=== PATIENT | male | born 1955 | race Caucasian/White ===

== ENCOUNTER → 2017-05-22 | Outpatient (CLI) | payer OTHER ==
[~2017-05-22] MED LIST: GLUC1TAB27 PO; MATURE MVT PO
== END | disposition home or self-care (01) ==
LOC: STAR 11:18
PROVIDERS: ATTEND Podiatrist Foot & Ankle Surgery
DX: Z01.818 Encounter for other preprocedural examination (principal)
CPT/HCPCS: 93005

== ENCOUNTER 2017-05-27 17:07 | Day surgery (SDC) | payer OTHER ==
[~2017-05-27] VITALS: Ht 185.4 cm; Wt 120.0 kg
[2017-05-27] MEDS ORDERED: LACTATED RINGERS 1,000 ML IV SCH (17:44)
[2017-05-27] MEDS ORDERED: MIDAZOLAM 1 MG/ML, 2ML ONE (18:25)
[2017-05-27] MEDS ORDERED: LIDOCAINE/PF 1%, 30ML ONE (18:29)
[2017-05-27] MEDS ORDERED: BUPIVACAINE/PF 0.5% ONE (18:29)
[2017-05-27] MEDS ORDERED: EPINEPHRINE 1 MG/ML, 1ML ONE (18:29)
[2017-05-27] MEDS ORDERED: FENTANYL PF 250 MCG/5ML ONE (18:36)
[2017-05-27] MEDS ORDERED: ACETAMINOPHEN 325 MG TABLET PO PRN (19:00)
[2017-05-27] MEDS ORDERED: hydrALAzine 20 MG/ML, 1ML IV PRN (19:00)
[2017-05-27] MEDS ORDERED: HYDROmorphone 1 MG/ML, 1ML IV PRN (19:00)
[2017-05-27] MEDS ORDERED: LABETALOL 5MG/ML, 20ML IV PRN (19:00)
[2017-05-27] MEDS ORDERED: ONDANSETRON 2MG/ML, 2ML IVPush PRN (19:00)
[2017-05-27] MEDS ORDERED: OXYcodone 5 MG/5 ML ORAL.SOL UDC PO PRN (19:00)
[2017-05-27] MEDS ORDERED: FENTANYL PF 100 MCG/2ML IV PRN (19:00)
[2017-05-27] MEDS ORDERED: PROPOFOL 10 MG/ML, 20ML ONE ×2 (19:27)
[2017-05-27] MEDS ORDERED: CEFAZOLIN 1,000 MG ONE ×2 (19:27)
[2017-05-27] MEDS ORDERED: ACETAMINOPHEN 650 MG/20.3 ML UDC ONE (20:02)
[2017-05-27 20:30] VITALS: BP 137/81
== END 2017-05-27 22:03 | disposition home or self-care (01) ==
LOC: OUT 17:07 → 4NOR 20:50 → OUT 22:03
PROVIDERS: ATTEND Podiatrist Foot & Ankle Surgery
DX: M77.51 Other enthesopathy of right foot and ankle (principal); Z98.890 Other specified postprocedural states; Z88.1 Allergy status to other antibiotic agents; E66.9 Obesity, unspecified; Z68.35 Body mass index [BMI] 35.0-35.9, adult
CPT/HCPCS: 28122; J0171; J0690; J2250; J2704; J3010; J3490

== ENCOUNTER 2018-07-27 18:45 | Inpatient (IN) | payer OTHER, MEDICARE ==
[~2018-07-27] VITALS: Ht 185.4 cm; Wt 106.4 kg
--- NOTE | 2018-07-27 19:03 | NUR ---
PT WC'D TO ROOM 23 W/ C/O EPIGASTRIC ABD PAIN STARTED THURSDAY AND HAS GOTTEN INCREASING WORSE. PT STATES HE ALSO STARTED HAVING C/O CP STARTED 15 MIN AGO. PT HAS HX ABLATION 2007. PT RESTING ON GURNEY. NADN. VSS. MONITORS APPLIED. WARM BLANKET PROVIDED. FAMILY AT BEDISDE. EDPA AT BEDSIDE. REPORT GIVEN TO ALEXA HERNÁNDEZ RN.
[2018-07-27] MEDS ORDERED: HYDROmorphone 2 MG/ML, 1ML IVPush PRN (19:30)
[2018-07-27] MEDS ORDERED: ONDANSETRON 2MG/ML, 2ML IVPush ONE (19:30)
[2018-07-27 19:32] LABS: BASOPHILS # (AUTO) 0.02 x10^3/uL (0-0.1); BASOPHILS % (AUTO) 0 % (0-1); EOSINOPHILS # (AUTO) 0.05 x10^3/uL (0-0.4); EOSINOPHILS % (AUTO) 1 % (1-7); LYMPHOCYTES % (AUTO) 10 % (22-44); MD NO; MEAN CORPUSCULAR HEMOGLOBIN 30.5 pg (27.5-34.5); MEAN CORPUSCULAR HGB CONC 34.7 g/dL (33.2-36.2); MEAN CORPUSCULAR VOLUME 87.7 fL (81-97); MEAN PLATELET VOLUME 9.8 fL (7.4-10.4); MONOCYTES # (AUTO) 0.87 x10^3/uL (0.2-0.8); MONOCYTES % (AUTO) 9 % (2-9); NEUTROPHILS # (AUTO) 8.25 x10^3/uL (1.8-6.8); NEUTROPHILS % (AUTO) 81 % (42-75); PLATELET COUNT 155 x10^3/uL (130-400); RED BLOOD COUNT 5.45 x10^6/uL (4.38-5.82)
[2018-07-27] MEDS ORDERED: HYDROmorphone 1 MG/ML, 1ML ONE (19:37)
[2018-07-27] MEDS ORDERED: ONDANSETRON 2MG/ML, 2ML ONE ×2 (19:37→22:53)
--- NOTE | 2018-07-27 19:40 | NUR ---
PT C/O 12/15 PAIN, MEDICATED, MONITORS ON. WILL RE-CHECK. URINE SENT. AT BEDSIDE.
[2018-07-27 19:42] LABS: ALBUMIN 3.7 g/dL (3.4-5.0); ANION GAP 7 mmol/L (5-15); CALCIUM 9.2 mg/dL (8.5-10.1); CHLORIDE 105 mmol/L (98-107)
[2018-07-27 19:47] LABS: ALANINE AMINOTRANSFERASE 23 U/L (12-78); ALKALINE PHOSPHATASE 84 U/L (45-117); BILIRUBIN,TOTAL 1.6 mg/dL (0.2-1.0); CREATININE 1.01 mg/dL (0.7-1.3); TOTAL PROTEIN 7.7 g/dL (6.4-8.2); TROPONIN I < 0.015 ng/mL (0.000-0.045)
--- NOTE | 2018-07-27 20:08 | NUR ---
PAIN IMPROVED WITH 1 MG DILAUDID, NOW 07/18. WAITING FOR CT.
[2018-07-27 20:15] LABS: CULTURE INDICATED? YES; MICROSCOPIC INDICATED
[2018-07-27] MEDS ORDERED: OMNIPAQUE 350 MG/ML, 100ML BOTTLE ONE (20:29)
--- NOTE | 2018-07-27 21:01 | NUR ---
ALL RESULTS BACK, PT UP FOR RE-EVAL.
--- NOTE | 2018-07-27 21:48 | NUR ---
REPORT CALLED TO FLOOR RN.
[2018-07-27] MEDS ORDERED: MIDAZOLAM 1 MG/ML, 2ML IVPush ONE (22:00)
[2018-07-27] MEDS ORDERED: MIDAZOLAM 1 MG/ML, 2ML ONE ×2 (22:12→22:46)
[2018-07-27] MEDS ORDERED: LIDOCAINE 2% VISCOUS 15 ML UDC ONE (22:13)
[2018-07-27] MEDS ORDERED: BENZOCAINE 20% SPRAY 0.5ML ONE (22:14)
[2018-07-27] MEDS ORDERED: BUPIVACAINE/PF-EPI 0.5% 1:200K ONE (22:30)
--- NOTE | 2018-07-27 22:30 | NUR ---
CALL RECEIVED FROM OR, PT GOING TO SURGERY NOW. NOTIFIED. PT AND NOTIFIED. FLOOR RN GAUDENCIO NOTIFIED. PT TRANSFERED TO OR WITH CHART AND ALL BELONIGINS.
[2018-07-27] MEDS ORDERED: BUPIVACAINE/PF-EPI 0.5% 1:200K IM ONE (22:43)
[2018-07-27] MEDS ORDERED: FENTANYL PF 250 MCG/5ML ONE (22:46)
[2018-07-27] MEDS ORDERED: SUCCINYLCHOLINE 20 MG/ML, 10ML ONE (22:53)
[2018-07-27] MEDS ORDERED: ROCURONIUM 10 MG/ML,10ML ONE (22:53)
[2018-07-27] MEDS ORDERED: CEFOTETAN 2 GM ONE (22:53)
[2018-07-27] MEDS ORDERED: PROPOFOL 10 MG/ML, 20ML ONE (22:53)
[2018-07-27] MEDS ORDERED: SUGAMMADEX 200 MG/2 ML IVPush ONE (23:22)
[2018-07-27] MEDS ORDERED: FENTANYL PF 100 MCG/2ML ONE (23:36)
[2018-07-27] MEDS ORDERED: HYDROmorphone 2 MG/ML, 1ML ONE (23:36)
[2018-07-27] MEDS: HYDROmorphone 1 MG/ML, 1ML IV PRN (23:45)
[2018-07-28] MEDS ORDERED: ALBUTEROL SULFATE 2.5 MG/3 ML NPPB PRN
[2018-07-28] MEDS ORDERED: LABETALOL 5MG/ML, 20ML IV PRN
[2018-07-28] MEDS ORDERED: FENTANYL PF 100 MCG/2ML IV PRN
[2018-07-28] MEDS ORDERED: PROMETHAZINE 25 MG/ML, 1ML IV PRN
[2018-07-28] MEDS ORDERED: hydrALAzine 20 MG/ML, 1ML IV PRN
[2018-07-28] MEDS ORDERED: METOCLOPRAMIDE 5 MG/ML, 2ML IV PRN
[2018-07-28] MEDS ORDERED: MEPERIDINE/PF 25MG/0.5ML IVPush PRN
[2018-07-28] MEDS ORDERED: OXYcodone 5 MG/5 ML ORAL.SOL UDC PO PRN
[2018-07-28] MEDS: HYDROmorphone 1 MG/ML, 1ML IV PRN (00:03)
[2018-07-28] MEDS ORDERED: morphine SULFATE 10 MG/ML, 1ML IV PRN (01:00)
[2018-07-28] MEDS ORDERED: KETOROLAC 30 MG/1 ML IV PRN ×2 (01:00)
[2018-07-28] MEDS ORDERED: ONDANSETRON 2MG/ML, 2ML IV PRN (01:00)
[2018-07-28] MEDS ORDERED: POTASSIUM CHLORIDE 20 MEQ in D5%-0.45% NACL 1,000 ML IV SCH (01:00)
[2018-07-28] MEDS: SODIUM CHLORIDE 0.9% 1,000 ML IV SCH ×2 (02:26→10:26)
[2018-07-28] MEDS ORDERED: ONDANSETRON ODT 4 MG PO PRN (02:30)
[2018-07-28] MEDS ORDERED: hydrALAzine 20 MG/ML, 1ML IVPush PRN (02:30)
[2018-07-28] MEDS ORDERED: morphine SULFATE 10 MG/ML, 1ML IVPush PRN (02:30)
[2018-07-28] MEDS ORDERED: OXYcodone/APAP 5/325MG TABLET PO PRN (02:30)
[2018-07-28] MEDS ORDERED: ONDANSETRON 2MG/ML, 2ML IVPush PRN ×2 (02:30)
[2018-07-28] MEDS ORDERED: PROMETHAZINE 25 MG/ML, 1ML IM PRN (02:30)
[2018-07-28 02:49] VITALS: BP 142/75
[2018-07-28 03:31] LABS: FREE T4 (FREE THYROXINE) 1.2 ng/dL (0.76-1.46); THYROID STIMULATING HORMONE 1.3 mIU/L (0.358-3.740)
[2018-07-28 05:52] LABS: ALBUMIN 3.2 g/dL (3.4-5.0); ANION GAP 5 mmol/L (5-15); CALCIUM 8.3 mg/dL (8.5-10.1); CHLORIDE 106 mmol/L (98-107)
[2018-07-28 05:56] LABS: ALANINE AMINOTRANSFERASE 17 U/L (12-78); ALKALINE PHOSPHATASE 73 U/L (45-117); BILIRUBIN,TOTAL 1.4 mg/dL (0.2-1.0); CHOL/HDL RATIO 3.5; CHOLESTEROL, TOTAL 164 mg/dL (140-239); CREATININE 1.08 mg/dL (0.7-1.3); HDL CHOL % 29 % (26-37); HDL CHOLESTEROL (DIRECT) 47 mg/dL (40-60); LDL CHOLESTEROL,CALCULATED 97 mg/dL (54-169); LDL/HDL RATIO 2.1 (0.5-3.0); TOTAL PROTEIN 6.8 g/dL (6.4-8.2); TRIGLYCERIDES 98 mg/dL (50-200); VLDL CHOLESTEROL 20 mg/dL (0-25)
[2018-07-28 06:02] VITALS: BP 75/42
[2018-07-28 06:04] VITALS: BP 115/63
[2018-07-28 06:16] LABS: BASOPHILS # (AUTO) 0.01 x10^3/uL (0-0.1); BASOPHILS % (AUTO) 0 % (0-1); EOSINOPHILS % (AUTO) 0 % (1-7); LYMPHOCYTES # (AUTO) 0.54 x10^3/uL (1-3.4); LYMPHOCYTES % (AUTO) 14 % (22-44); MD NO; MEAN CORPUSCULAR HEMOGLOBIN 30.8 pg (27.5-34.5); MEAN CORPUSCULAR HGB CONC 34.6 g/dL (33.2-36.2); MEAN CORPUSCULAR VOLUME 88.8 fL (81-97); MEAN PLATELET VOLUME 9.4 fL (7.4-10.4); MONOCYTES # (AUTO) 0.19 x10^3/uL (0.2-0.8); MONOCYTES % (AUTO) 5 % (2-9); NEUTROPHILS # (AUTO) 3.09 x10^3/uL (1.8-6.8); NEUTROPHILS % (AUTO) 81 % (42-75); PLATELET COUNT 119 x10^3/uL (130-400); RED BLOOD COUNT 5.07 x10^6/uL (4.38-5.82); RED CELL DISTRIBUTION WIDTH 12.8 % (9.4-14.8)
[2018-07-28] MEDS: ENOXAPARIN 40 MG/0.4 ML SQ SCH (08:51)
[2018-07-28 11:38] VITALS: BP 102/55
[2018-07-28] MEDS: D5%-0.45% NACL 1,000 ML IV SCH ×2 (12:12→19:42)
[2018-07-28 14:00] VITALS: BP 106/58
[2018-07-28] MEDS: ACETAMINOPHEN 325 MG TABLET PO PRN (17:11)
[2018-07-28 18:46] VITALS: BP 100/57
[2018-07-29 02:58] VITALS: BP 114/65
[2018-07-29] MEDS: ACETAMINOPHEN 325 MG TABLET PO PRN (03:03)
[2018-07-29] MEDS: D5%-0.45% NACL 1,000 ML IV SCH ×2 (04:03→11:56)
[2018-07-29] MEDS: ENOXAPARIN 40 MG/0.4 ML SQ SCH (08:21)
[2018-07-29 09:02] VITALS: BP 113/66
[2018-07-29] MEDS ORDERED: DOCU-131 PO (12:08)
[2018-07-29] MEDS ORDERED: ACET325T14 PO (12:08)
[2018-07-29] MEDS ORDERED: ONDA4TAB13 PO (12:08)
== END 2018-07-29 14:08 | disposition home or self-care (01) | DRG 356 ==
LOC: ED 20:58 → EDIP 21:03 → ED 21:30 → 4NOR 07-28 00:35 → DCLOUNGE 07-29 13:59
PROVIDERS: ADMIT Internal Medicine; ATTEND Internal Medicine
PROC: 0D9670Z Drainage of Stomach with Drainage Device, Via Natural or Artificial Opening (ICD-10-PCS; 2018-07-27)
PROC: 0WJP4ZZ Inspection of Gastrointestinal Tract, Percutaneous Endoscopic Approach (ICD-10-PCS; principal; 2018-07-27 22:30)
PROC: 5A09357 Assistance with Respiratory Ventilation, Less than 24 Consecutive Hours, Continuous Positive Airway Pressure (ICD-10-PCS; 2018-07-29)
DX: K56.7 Ileus, unspecified (principal); K65.9 Peritonitis, unspecified; R17 Unspecified jaundice; K56.600 Partial intestinal obstruction, unspecified as to cause; G47.33 Obstructive sleep apnea (adult) (pediatric); K21.9 Gastro-esophageal reflux disease without esophagitis; Z82.49 Family history of ischemic heart disease and other diseases of the circulatory system; Z86.79 Personal history of other diseases of the circulatory system; Z90.49 Acquired absence of other specified parts of digestive tract; Z88.8 Allergy status to other drugs, medicaments and biological substances
CPT/HCPCS: 36415; 99285; J3490; 71045; 74177; 80053; 80061; 81001; 83690; 83735; 83880; 84439; 84443; 84484; 85025; 87086; 93005; 96372; 96374; 96375; G0378; J1170; J1650; J2250; J2405; J2704; J3010; J3480; Q0162; Q9967; J0330; J2270

== ENCOUNTER → 2020-06-19 | Outpatient (CLI) | payer MEDICARE, OTHER ==
[~2020-06-19] MED LIST changes: +ACET325T14 PO; +CYCL-259 PO; +DOCU-131 PO; +GABA300C PO; +MELO15TA24 PO; +MULT-658 PO; +ONDA4TAB13 PO
[2020-06-19 10:17] LABS: INTERNATIONAL NORMALIZED RATIO 1.01 (0.93-1.1); PROTHROMBIN TIME 10.7 Seconds (9.6-11.5)
[2020-06-19 10:19] LABS: ALANINE AMINOTRANSFERASE 54 U/L (12-78); ALBUMIN 4.1 g/dL (3.4-5.0); CHLORIDE 109 mmol/L (98-107); CREATININE 0.92 mg/dL (0.7-1.3)
[2020-06-19 10:20] LABS: BASOPHILS % (AUTO) 0 % (0-1); EOSINOPHILS % (AUTO) 4 % (1-7); LYMPHOCYTES % (AUTO) 31 % (22-44); MEAN CORPUSCULAR HEMOGLOBIN 29.7 pg (27.5-34.5); MEAN CORPUSCULAR HGB CONC 34.6 g/dL (33.2-36.2); MEAN PLATELET VOLUME 9.2 fL (7.4-10.4); MONOCYTES % (AUTO) 8 % (2-9); NEUTROPHILS % (AUTO) 57 % (42-75); PLATELET COUNT 180 x10^3/uL (130-400); RED BLOOD COUNT 5.46 x10^6/uL (4.38-5.82); RED CELL DISTRIBUTION WIDTH 13.2 % (9.4-14.8)
[2020-06-19 10:21] LABS: MD NO
[2020-06-19 10:22] LABS: ALKALINE PHOSPHATASE 89 U/L (45-117); BILIRUBIN,TOTAL 1.1 mg/dL (0.2-1.0); TOTAL PROTEIN 7.3 g/dL (6.4-8.2)
[2020-06-19 10:39] LABS: ANION GAP 7 mmol/L (5-15)
== END | disposition home or self-care (01) ==
LOC: STAR 08:30
PROVIDERS: ATTEND Orthopaedic Surgery
DX: Z01.810 Encounter for preprocedural cardiovascular examination (principal); Z01.818 Encounter for other preprocedural examination; M16.11 Unilateral primary osteoarthritis, right hip; M25.551 Pain in right hip; I45.19 Other right bundle-branch block; Z79.01 Long term (current) use of anticoagulants; Z20.828 Contact with and (suspected) exposure to other viral communicable diseases
CPT/HCPCS: 80053; 83036; 85025; 85610; 85730; 87081; 87147; 87635; 87806; 93005; G0475

== ENCOUNTER 2020-06-25 06:22 | Day surgery (SDC) | payer MEDICARE, OTHER ==
[~2020-06-25] VITALS: Ht 185.4 cm; Wt 122.0 kg
[2020-06-25] MEDS ORDERED: TRANEXAMIC ACID 100 MG/ML, 10ML ONE (06:32)
[2020-06-25] MEDS ORDERED: KETOROLAC 60 MG/2 ML ONE (06:32)
[2020-06-25] MEDS ORDERED: ROPIvacaine/PF 0.2%, 20 ML ONE (06:32)
[2020-06-25] MEDS ORDERED: VANCOMYCIN 1,000 MG ONE (06:32)
[2020-06-25] MEDS ORDERED: SODIUM CHLORIDE 0.9% 50 ML ONE (06:32)
[2020-06-25] MEDS ORDERED: EPINEPHRINE 1 MG/ML, 1ML ONE (06:32)
[2020-06-25] MEDS ORDERED: CHLORHEXIDINE 15 ML UDC MM STA (06:44)
[2020-06-25 06:54] VITALS: BP 157/97
[2020-06-25] MEDS ORDERED: GABAPENTIN 300 MG CAPSULE PO ONE (07:00)
[2020-06-25] MEDS ORDERED: ACETAMINOPHEN 500 MG TABLET PO ONE (07:00)
[2020-06-25] MEDS: LACTATED RINGERS 1,000 ML IV SCH ×2 (07:16→07:27)
[2020-06-25] MEDS ORDERED: MIDAZOLAM 1 MG/ML, 2ML ONE (07:29)
[2020-06-25] MEDS ORDERED: FENTANYL PF 100 MCG/2ML ONE ×2 (07:29→09:52)
[2020-06-25] MEDS ORDERED: METOCLOPRAMIDE 5 MG/ML, 2ML IVPush PRN (08:00)
[2020-06-25] MEDS ORDERED: ACETAMINOPHEN 650 MG/20.3 ML UDC PO PRN (08:00)
[2020-06-25] MEDS ORDERED: MAGNESIUM HYDROXIDE 8%, 30ML UDC PO PRN (08:00)
[2020-06-25] MEDS ORDERED: MEPERIDINE/PF 25MG/0.5ML IVPush PRN (08:00)
[2020-06-25] MEDS ORDERED: PSYLLIUM PACKET PO PRN (08:00)
[2020-06-25] MEDS ORDERED: ONDANSETRON 2MG/ML, 2ML IVPush PRN (08:00)
[2020-06-25] MEDS ORDERED: ALUMINUM/MAG/SIMETHICONE 30 ML UDC PO PRN (08:00)
[2020-06-25] MEDS ORDERED: SUGAMMADEX 200 MG/2 ML IVPush ONE (08:00)
[2020-06-25] MEDS ORDERED: CEFAZOLIN PMX 1GM/50ML 50 ML IVPB SCH (08:00)
[2020-06-25] MEDS ORDERED: DEXAMETHASONE 4 MG/ML, 1ML IVPush SCH (08:00)
[2020-06-25] MEDS ORDERED: EPHEDRINE 50 MG/ML, 1ML ONE (08:00)
[2020-06-25] MEDS ORDERED: OXYcodone 5 MG/5 ML ORAL.SOL UDC PO PRN (08:00)
[2020-06-25] MEDS ORDERED: ONDANSETRON 4 MG TABLET PO PRN (08:00)
[2020-06-25] MEDS ORDERED: DIPHENHYDRAMINE 50 MG/ML, 1ML IVPush PRN (08:00)
[2020-06-25] MEDS ORDERED: HYDROmorphone 1 MG/ML, 1ML INJ IVPush PRN (08:00)
[2020-06-25] MEDS ORDERED: PROMETHAZINE 12.5 MG SUPP PR PRN (08:00)
[2020-06-25] MEDS ORDERED: POTASSIUM CHLORIDE 20 MEQ in D5%-0.45% NACL 1,000 ML IV SCH (08:00)
[2020-06-25] MEDS ORDERED: OXYcodone IR 5MG TABLET PO PRN (08:00)
[2020-06-25] MEDS ORDERED: KETOROLAC 30 MG/1 ML IV SCH (08:00)
[2020-06-25] MEDS ORDERED: SENNA/DOCUSATE TABLET PO PRN (08:00)
[2020-06-25] MEDS ORDERED: PROMETHAZINE 25 MG/ML, 1ML IVPush PRN (08:00)
[2020-06-25] MEDS ORDERED: HYDROcodone/APAP 7.5-325MG/15ML UDC PO PRN (08:00)
[2020-06-25] MEDS ORDERED: DEXAMETHASONE 4 MG/ML, 1ML ONE (08:00)
[2020-06-25] MEDS ORDERED: PROPOFOL 10 MG/ML, 20ML ONE (08:35)
[2020-06-25] MEDS ORDERED: CEFAZOLIN 1,000 MG ONE (08:35)
[2020-06-25] MEDS ORDERED: ONDANSETRON 2MG/ML, 2ML ONE (08:35)
[2020-06-25] MEDS ORDERED: ROCURONIUM 10MG/ML,5ML ONE (08:35)
[2020-06-25] MEDS ORDERED: GLYCOPYRROLATE 0.2MG/1ML, 5ML ONE (08:35)
[2020-06-25] MEDS ORDERED: NEOSTIGMINE 1 MG/ML, 10ML ONE (08:35)
[2020-06-25] MEDS ORDERED: SUCCINYLCHOLINE 20 MG/ML, 10ML ONE (08:35)
[2020-06-25] MEDS ORDERED: TAMSULOSIN 0.4 MG CAP.ER.24H PO SCH (09:00)
[2020-06-25] MEDS ORDERED: DIPHENHYDRAMINE 25 MG CAPSULE PO PRN (09:00)
[2020-06-25] MEDS ORDERED: DOCUSATE 100 MG CAPSULE PO SCH (09:00)
[2020-06-25] MEDS ORDERED: OXYcodone 5 MG/5 ML ORAL.SOL UDC ONE (09:52)
[2020-06-25] MEDS: FENTANYL PF 100 MCG/2ML IV PRN ×2 (09:54→10:00)
[2020-06-25] MEDS ORDERED: TRANEXAMIC ACID 1,000 MG in SODIUM CHLORIDE 0.9% 100 ML IVPB ONE (10:08)
[2020-06-25] MEDS ORDERED: HYDROmorphone 1 MG/ML, 1ML INJ ONE ×2 (10:25→10:45)
[2020-06-25] MEDS: HYDROmorphone 1 MG/ML, 1ML INJ IVPush PRN ×4 (10:26→10:50)
[2020-06-25] MEDS ORDERED: ASPIRIN 81 MG TABLET EC PO SCH (18:00)
== END 2020-06-25 17:15 | disposition home or self-care (01) ==
LOC: OUT 06:22
PROVIDERS: ATTEND Orthopaedic Surgery
DX: M16.0 Bilateral primary osteoarthritis of hip (principal); M25.751 Osteophyte, right hip; G47.30 Sleep apnea, unspecified; E66.9 Obesity, unspecified; Z68.36 Body mass index [BMI] 36.0-36.9, adult; Z79.1 Long term (current) use of non-steroidal anti-inflammatories (NSAID); Z79.82 Long term (current) use of aspirin; Z79.891 Long term (current) use of opiate analgesic; Z79.899 Other long term (current) drug therapy; Z88.8 Allergy status to other drugs, medicaments and biological substances; Z82.49 Family history of ischemic heart disease and other diseases of the circulatory system
CPT/HCPCS: 27130; 72170; 97162; C1713; C1776; J0171; J0330; J0690; J1100; J1170; J1885; J2250; J2405; J2704; J2710; J2795; J3010; J7120; J3370

== ENCOUNTER → 2020-07-19 | Outpatient (CLI) | payer MEDICARE ==
[~2020-07-19] MED LIST changes: -CYCL-259 PO; +CYCL10TA2 PO
== END | disposition home or self-care (01) ==
LOC: RAD 16:40
PROVIDERS: ATTEND Orthopaedic Surgery
DX: Z96.641 Presence of right artificial hip joint (principal)

== ENCOUNTER → 2020-08-27 | Outpatient (CLI) | payer MEDICARE ==
[2020-08-27 09:09] LABS: BASOPHILS % (AUTO) 0 % (0-1); EOSINOPHILS % (AUTO) 3 % (1-7); LYMPHOCYTES % (AUTO) 27 % (22-44); MEAN CORPUSCULAR HEMOGLOBIN 29.3 pg (27.5-34.5); MONOCYTES % (AUTO) 8 % (2-9); NEUTROPHILS % (AUTO) 62 % (42-75); PLATELET COUNT 168 x10^3/uL (130-400); RED BLOOD COUNT 5.15 x10^6/uL (4.38-5.82); RED CELL DISTRIBUTION WIDTH 13.2 % (9.4-14.8)
[2020-08-27 09:10] LABS: MD NO
[2020-08-27 09:21] LABS: ALANINE AMINOTRANSFERASE 30 U/L (12-78); ALBUMIN 4.1 g/dL (3.4-5.0); ANION GAP 5 mmol/L (5-15); CALCIUM 9.4 mg/dL (8.5-10.1); CHLORIDE 110 mmol/L (98-107); CREATININE 0.88 mg/dL (0.7-1.3); INTERNATIONAL NORMALIZED RATIO 0.98 (0.93-1.1); PROTHROMBIN TIME 10.5 Seconds (9.6-11.5)
[2020-08-27 09:23] LABS: ALKALINE PHOSPHATASE 100 U/L (45-117); TOTAL PROTEIN 7.4 g/dL (6.4-8.2)
== END | disposition home or self-care (01) ==
LOC: STAR 08:05
PROVIDERS: ATTEND Orthopaedic Surgery
DX: Z01.810 Encounter for preprocedural cardiovascular examination (principal); Z01.818 Encounter for other preprocedural examination; M16.52 Unilateral post-traumatic osteoarthritis, left hip; M25.552 Pain in left hip; Z20.822 Contact with and (suspected) exposure to COVID-19; Z79.01 Long term (current) use of anticoagulants
CPT/HCPCS: 36415; 80053; 83036; 85025; 85610; 85730; 87081; 87806; 93005; U0003; G0475

== ENCOUNTER 2020-08-31 05:54 | Day surgery (SDC) | payer MEDICARE ==
[~2020-08-31] VITALS: Ht 185.4 cm; Wt 120.5 kg
[2020-08-31] MEDS ORDERED: ROPIvacaine/PF 0.2%, 20 ML ONE (06:10)
[2020-08-31] MEDS ORDERED: KETOROLAC 60 MG/2 ML ONE (06:10)
[2020-08-31] MEDS ORDERED: TRANEXAMIC ACID 100 MG/ML, 10ML ONE (06:10)
[2020-08-31] MEDS ORDERED: VANCOMYCIN 1,000 MG ONE (06:10)
[2020-08-31] MEDS ORDERED: SODIUM CHLORIDE 0.9% 50 ML ONE (06:10)
[2020-08-31] MEDS ORDERED: EPINEPHRINE 1 MG/ML, 1ML ONE (06:10)
[2020-08-31 07:22] VITALS: BP 150/84
[2020-08-31] MEDS ORDERED: ACETAMINOPHEN 500 MG TABLET PO ONE (07:30)
[2020-08-31] MEDS ORDERED: CHLORHEXIDINE 15 ML UDC PO ONE (07:30)
[2020-08-31] MEDS ORDERED: LACTATED RINGERS 1,000 ML IV SCH (07:30)
[2020-08-31] MEDS ORDERED: GABAPENTIN 300 MG CAPSULE PO ONE (07:30)
[2020-08-31] MEDS ORDERED: MEPERIDINE/PF 25MG/0.5ML IVPush PRN (08:00)
[2020-08-31] MEDS ORDERED: ONDANSETRON 2MG/ML, 2ML IVPush PRN ×2 (08:00→10:00)
[2020-08-31] MEDS ORDERED: PROMETHAZINE 25 MG/ML, 1ML IVPush PRN (08:00)
[2020-08-31] MEDS ORDERED: HYDROcodone/APAP 7.5-325MG/15ML UDC PO PRN (08:00)
[2020-08-31] MEDS ORDERED: OXYcodone 5 MG/5 ML ORAL.SOL UDC PO PRN ×2 (08:00→10:00)
[2020-08-31] MEDS ORDERED: HYDROmorphone 1 MG/ML, 1ML INJ IVPush PRN ×2 (08:00→10:00)
[2020-08-31] MEDS ORDERED: ACETAMINOPHEN 325 MG TABLET PO PRN ×2 (08:00→10:00)
[2020-08-31] MEDS ORDERED: CEFAZOLIN 1,000 MG ONE (08:47)
[2020-08-31] MEDS ORDERED: NEOSTIGMINE 1 MG/ML, 10ML ONE (08:47)
[2020-08-31] MEDS ORDERED: FENTANYL PF 100 MCG/2ML ONE ×3 (08:47→11:49)
[2020-08-31] MEDS ORDERED: ONDANSETRON 2MG/ML, 2ML ONE (08:47)
[2020-08-31] MEDS ORDERED: PROPOFOL 10 MG/ML, 20ML ONE (08:47)
[2020-08-31] MEDS ORDERED: GLYCOPYRROLATE 0.2MG/1ML, 5ML ONE (08:47)
[2020-08-31] MEDS ORDERED: SUCCINYLCHOLINE 20 MG/ML, 10ML ONE (08:47)
[2020-08-31] MEDS ORDERED: MIDAZOLAM 1 MG/ML, 2ML ONE (08:47)
[2020-08-31] MEDS ORDERED: ROCURONIUM 10MG/ML,5ML ONE (08:47)
[2020-08-31] MEDS ORDERED: DEXAMETHASONE 4 MG/ML, 1ML ONE (08:47)
[2020-08-31] MEDS ORDERED: EPHEDRINE 50 MG/ML, 1ML ONE (09:35)
[2020-08-31] MEDS ORDERED: PROMETHAZINE 25 MG/ML, 1ML IM PRN (10:00)
[2020-08-31] MEDS ORDERED: KETOROLAC 30 MG/1 ML IVPush SCH (10:00)
[2020-08-31] MEDS: FENTANYL PF 100 MCG/2ML IV PRN ×4 (11:20→12:10)
[2020-08-31] MEDS ORDERED: HYDROmorphone 1 MG/ML, 1ML INJ ONE (11:20)
[2020-08-31] MEDS ORDERED: TRANEXAMIC ACID 100 MG/ML, 10ML TP ONE (11:30)
[2020-08-31] MEDS ORDERED: ACETAMINOPHEN 650 MG/20.3 ML UDC ONE (11:31)
[2020-08-31] MEDS ORDERED: OXYcodone 5 MG/5 ML ORAL.SOL UDC ONE (11:31)
[2020-08-31] MEDS ORDERED: KETOROLAC 30 MG/1 ML ONE (11:49)
[2020-08-31] MEDS ORDERED: TRANEXAMIC ACID 1,000 MG in SODIUM CHLORIDE 0.9% 100 ML IVPB ONE (12:00)
[2020-08-31] MEDS ORDERED: ASPIRIN 81 MG TABLET EC PO SCH (21:00)
== END 2020-08-31 17:05 | disposition home or self-care (01) ==
LOC: OUT 05:54
PROVIDERS: ATTEND Orthopaedic Surgery
DX: M25.552 Pain in left hip (principal); M16.12 Unilateral primary osteoarthritis, left hip; E66.9 Obesity, unspecified; G47.30 Sleep apnea, unspecified; Z68.35 Body mass index [BMI] 35.0-35.9, adult; Z88.8 Allergy status to other drugs, medicaments and biological substances; Z88.1 Allergy status to other antibiotic agents; Z79.899 Other long term (current) drug therapy; Z72.89 Other problems related to lifestyle; Z98.890 Other specified postprocedural states
CPT/HCPCS: 27130; 36415; 72170; 86850; 86900; 97161; C1713; C1776; J0171; J0330; J0690; J1100; J1885; J2250; J2405; J2704; J2710; J2795; J3010; J7120; J3370